=== PATIENT | male | born 1985 | race Caucasian/White ===

== ENCOUNTER 2023-09-19 11:19 | Outpatient (OUT) | payer OTHER, SELFPAY ==
[2023-09-19 12:52] LABS: INR 1.72; Prothrombin Time 17.3 sec (9.0-11.6)
== END 2023-09-19 11:20 | disposition home or self-care (01) ==
LOC: LAB 11:27
PROVIDERS: Visit Provider Nurse Practitioner Primary Care
DX: Z79.01 Long term (current) use of anticoagulants (principal)
CPT/HCPCS: 36415; 85610

== ENCOUNTER 2024-02-13 10:49 | Emergency (ER) | payer OTHER, SELFPAY ==
[2024-02-13] VITALS (10 sets, daily range): BP systolic 108–143; BP diastolic 46–61; PULSE 53–63; TEMP 36.6; O2SAT 96–98; BMI 23.7
--- NOTE | 2024-02-13 11:05 | XR_ITS ---
The [address] [address] Patient Name: RUBY ALEMAN MRN: [id number] date: 1985 Sex: M Assigned Patient Location: ED.MAIN Current Patient Location: ER Accession/Order Number: [id number] Exam Date: 02/13/2024 11:32 Report Date: 02/13/2024 12:25 At the request of: MAURA TIJERINA Procedure: XR abdomen min 2V EXAMINATION: XR abdomen min 2V HISTORY: Left lower quadrant pain, constipation COMPARISON: No relevant comparison available. FINDINGS: BOWEL GAS PATTERN: No abnormal dilation or deviation. Moderate to large amount of stool throughout the colon CALCIFICATIONS: None significant. OTHER: Negative. No abnormal gaseous collections. XR/XR abdomen min 2V IMPRESSION: Moderate to large amount of stool in the colon Electronically authenticated by: SHERMAN MCDANIEL Date: 02/13/2024 12:25
[2024-02-13 12:55] LABS: Basophils Percent Auto 0.7 % (0.2-2.0); Eosinophils Absolute Auto 0.4 10^3/uL (0.0-0.7); Eosinophils Percent Auto 8.7 % (0.9-7.0); Hematocrit 36.7 % (42.0-54.0); Hemoglobin 12.3 g/dL (14.0-18.0); Lymphocytes Absolute Auto 1.2 10^3/uL (1.2-3.8); Lymphocytes Percent Auto 29.5 % (20.5-60.0); Mean Corpuscular HGB Conc 33.5 g/dL (29.9-35.2); Mean Corpuscular Hemoglobin 29.4 pg (25.9-34.0); Mean Corpuscular Volume 87.8 fL (80.0-94.0); Mean Platelet Volume 11.5 fL (9.5-13.5); Monocytes Absolute Auto 0.4 10^3/uL (0.3-0.8); Monocytes Percent Auto 9.7 % (1.7-12.0); Neutrophils Absolute Auto 2.1 10^3/uL (1.4-6.5); Neutrophils Percent Auto 51.4 % (43.0-75.0); Platelet Count 152 10^3/uL (150-450); Red Blood Count 4.18 10^6/uL (4.70-6.10); White Blood Count 4.1 10^3/uL (4.0-11.0)
[2024-02-13] MEDS: ONDANSETRON PF 4 MG/2 ML VIAL IV (13:01)
[2024-02-13 13:24] LABS: Lactate/Lactic Acid 1.2 mmol/L (0.4-2.0)
[2024-02-13 13:31] LABS: Alanine Aminotransferase 17 U/L (16-63); Albumin Globulin Ratio 1.2; Albumin Level 3.4 g/dL (3.4-5.0); Alkaline Phosphatase 65 U/L (46-116); Aspartate Amino Transferase 18 U/L (15-37); BUN Creatinine Ratio 8.8; Bilirubin Total 0.7 mg/dL (0.2-1.0); Calcium 8.8 mg/dL (8.5-10.1); Carbon Dioxide 30.8 mmol/L (21.0-32.0); Chloride 107 mmol/L (98-107); Estimated GFR (African America >60 (>=60 mL/min/1.73m^2); Estimated GFR (Non-African Ame >60 (>=60 mL/min/1.73m^2); Globulin 2.9 g/dL; Glucose 99 mg/dL (74-106); Potassium 3.8 mmol/L (3.5-5.1); Sodium 142 mmol/L (136-145); Total Protein 6.3 g/dL (6.4-8.2)
[2024-02-13] MEDS: KETOROLAC TROMETHAMINE 30 MG/ML VIAL 15 MG IVP (13:40)
--- NOTE | 2024-02-13 14:50 | ED_ITS ---
HPI HPI - General Adult General Chief complaint: Abdominal Pain Stated complaint: ABDOMINAL PAIN Time Seen by Provider: 02/13/24 11:05 Source: patient Mode of arrival: Wheelchair Limitations: no limitations History of Present Illness HPI narrative: Patient is a 38-year-old male who is presenting to the ER today with chief complaint of constipation for the past several days to week. Patient is currently at [facility] for rehab for alcoholism. Patient has a significant drug history as well. He is currently not using any opiates or any other illicit drugs. Patient's history years ago he was using IV drugs, also with bad dental infections are not having endocarditis. Patient says that he is compliant with taking his medications. Patient has been receiving multiple different medications from nursing staff at the [facility] to help with constipation with no relief. Patient yesterday did a small fleets enema with a few hard balls coming out, nothing significant. Patient has diffuse abdominal pain, cramping, and moderate amount of rectal pressure. Patient currently taking no opiates. Patient is taking acid reflux medication. Patient has no urinary frequency urgency or burning. No acute complaints. All systems are negative except as noted/marked. All systems reviewed and otherwise negative. Nurses note and vital signs reviewed and patient is not hypoxic. General: The patient appears well and in no apparent distress. Patient is resting comfortably on cart. Patient is not toxic, lethargic, or listless Skin: Warm, dry, no pallor noted. There is no rash noted. No petechiae, purpura. Head: Normocephalic, atraumatic Eye: Normal conjunctiva, no drainage, EOMI. PERRL Ears, Nose, Mouth, and Throat: oral mucosa is moist. Nares patent. Mouth without vesicles. Cardiovascular: Regular Rate and Rhythm, no murmur, gallop, rub Respiratory: Patient is in no distress, no accessory muscle use, lungs are clear to auscultation, no wheezing, rales or rhonchi Back: non-tender, no CVA tenderness bilaterally to percussion. No CT LS midline pain GI: Hypoactive bowel sounds x 4, mild to moderate diffuse tenderness to palpation, no peritoneal signs, no rigidity, no masses appreciated. No rebound, guarding, or rigidity noted. No distention. Musculoskeletal: Patient has full range of motion of all of the extremities, no motor, sensory, or focal neurological deficits Neurological: A&O x4, normal speech Psychiatric: Cooperative Related Data Previous Rx's ?Medication ?Instructions ?Recorded ondansetron 4 mg disintegrating 4 mg PO Q4H PRN nausea and 02/13/24 tablet vomiting 3 days #6 tabs peg 3350-electrolytes 236 240 ml PO Q10M #4,000 mL 02/13/24 gram-22.74 gram-6.74 gram-5.86 gram solution (GaviLyte-G) Allergies Allergy/AdvReac Type Severity Reaction Status Date / Time adhesive tape AdvReac Severe Rash Verified 02/13/24 11:02 Opioid HPI Opioid Management Most Recent Opioid Data: Last Pain Scale 6 02/13/24 12:58 02/13/24 Last MAR Pain Assessment 02/13/24 13:40 Exam Constitutional Vital Signs, click to edit/add: Last Vital Signs Temp 97.9 F 02/13/24 10:57 Pulse 53 L 02/13/24 13:21 Resp 14 02/13/24 13:21 BP 143/58 H 02/13/24 13:30 Pulse Ox 96 02/13/24 13:21 Course Vital Signs Vital signs: Vital Signs Temperature 97.9 F 02/13/24 10:57 Pulse Rate 63 02/13/24 10:57 Respiratory Rate 16 02/13/24 10:57 Blood Pressure 108/55 02/13/24 10:57 Pulse Oximetry 98 02/13/24 10:57 Temperature 97.9 F 02/13/24 10:57 Pulse Rate 53 L 02/13/24 13:21 Respiratory Rate 14 02/13/24 13:21 Blood Pressure 143/58 H 02/13/24 13:30 Pulse Oximetry 96 02/13/24 13:21 Medical Decision Making MDM Narrative Medical decision making narrative: Patient x-ray shows moderate to large amount of stool in the colon, no other acute abnormalities. Patient was given 1 L of IV fluids to help with constipation. Patient had basic lab work that showed no significant signs of anemia, no significant signs of inf ection. Patient was given a soapsuds enema, patient had minimal relief with this. Patient did tolerate the whole enema. Patient will be prescribed GoLytely. Patient was given a prescription for Zofran. He has Bentyl. Patient will continue to work on helping with his bowel regiment. No question at discharge. No signs infection or obstruction Lab Data Labs: Lab Results 02/13/24 Range/Units 12:41 WBC 4.1 (4.0-11.0) 10^3/uL RBC 4.18 L (4.70-6.10) 10^6/uL Hgb 12.3 L (14.0-18.0) g/dL Hct 36.7 L (42.0-54.0) % MCV 87.8 (80.0-94.0) fL MCH 29.4 (25.9-34.0) pg MCHC 33.5 (29.9-35.2) g/dL RDW 13.0 (11.0-15.0) % Plt Count 152 (150-450) 10^3/uL MPV 11.5 (9.5-13.5) fL Neut % (Auto) 51.4 (43.0-75.0) % Lymph % (Auto) 29.5 (20.5-60.0) % Pershing % (Auto) 9.7 (1.7-12.0) % Eos % (Auto) 8.7 H (0.9-7.0) % Baso % (Auto) 0.7 (0.2-2.0) % Neut # (Auto) 2.1 (1.4-6.5) 10^3/uL Lymph # (Auto) 1.2 (1.2-3.8) 10^3/uL Pershing # (Auto) 0.4 (0.3-0.8) 10^3/uL Eos # (Auto) 0.4 (0.0-0.7) 10^3/uL Baso # (Auto) 0.0 (0.0-0.1) 10^3/uL Abs Immat Gran (auto) 0.00 (0.00-0.03) 10^3/uL Imm/Tot Granulo (auto) 0.0 (0.0-0.5) % Sodium 142 (136-145) mmol/L Potassium 3.8 (3.5-5.1) mmol/L Chloride 107 (98-107) mmol/L Carbon Dioxide 30.8 (21.0-32.0) mmol/L Anion Gap 8.0 BUN 9.0 (7.0-18.0) mg/dL Creatinine 1.02 (0.70-1.30) mg/dL Est GFR ( Amer) >60 (>=60 mL/min/1.73m^2) Est GFR (Non-Af Amer) >60 (>=60 mL/min/1.73m^2) BUN/Creatinine Ratio 8.8 Glucose 99 (74-106) mg/dL Lactate 1.2 (0.4-2.0) mmol/L Calcium 8.8 (8.5-10.1) mg/dL Total Bilirubin 0.7 (0.2-1.0) mg/dL AST 18 (15-37) U/L ALT 17 (16-63) U/L Alkaline Phosphatase 65 (46-116) U/L Total Protein 6.3 L (6.4-8.2) g/dL Albumin 3.4 (3.4-5.0) g/dL Globulin 2.9 g/dL Albumin/Globulin Ratio 1.2 Lipase 97.0 H (16.0-77.0) U/L Discharge Plan Discharge Chief Complaint: Abdominal Pain Clinical Impression: Abdominal pain, Constipation Patient Disposition: Home, Self-Care Time of Disposition Decision: 14:46 Condition: Fair Prescriptions / Home Meds: New ondansetron 4 mg tablet,disintegrating 4 mg PO Q4H PRN (Reason: nausea and vomiting) 3 Days Qty: 6 0RF peg 3350-electrolytes [GaviLyte-G] 236-22.74-6.74 -5.86 gram recon soln 240 ml PO Q10M Qty: 4000 0RF Rx Instructions: until fecal effluent is clear; as directed Print Language: Vietnamese Instructions: Constipation (ED), Abdominal Pain (ED) Additional Instructions: You were prescribed GoLytely. You the Bentyl that you have at your facility to help with abdominal cramping. You have been prescribed nausea medication use if needed. Increase fluids, water, apple juice, prune juice. Finish the GoLytely, follow-up with PCP for additional recommendations. Referrals: Physician,Non-Staff, MD [Primary Care Provider] - 1 week
== END 2024-02-13 15:06 | disposition home or self-care (01) ==
PROVIDERS: Emergency Provider Emergency Medicine
DX: K59.00 Constipation, unspecified (principal); R10.9 Unspecified abdominal pain; F10.20 Alcohol dependence, uncomplicated
CPT/HCPCS: 36415; 74019; 80053; 83605; 83690; 85025; 96374; 96375; 99285; J1885; J2405